=== PATIENT | female | born 1990 | race Caucasian/White ===

== ENCOUNTER 2019-08-14 10:01 | Emergency (ER) | payer OTHER, SELFPAY ==
[2019-08-14 10:01] VITALS: BP 102/64; PULSE 80; RESP 20; TEMP 36.7; O2SAT 100
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
== END 2019-08-14 10:35 | disposition home or self-care (01) ==
PROVIDERS: Emergency Provider Nurse Practitioner; PCP Internal Medicine
DX: T21.22XA Burn of second degree of abdominal wall, initial encounter (principal); S30.861A Insect bite (nonvenomous) of abdominal wall, initial encounter; W57.XXXA Bitten or stung by nonvenomous insect and other nonvenomous arthropods, initial encounter; X12.XXXA Contact with other hot fluids, initial encounter
CPT/HCPCS: 99213; G0463